=== PATIENT | female | born 1995 | race Caucasian/White ===

== ENCOUNTER 2020-04-30 21:19 | Emergency (ER) | payer BC ==
[~2020-04-30] VITALS: Ht 167.6 cm; Wt 59.0 kg
[2020-04-30] MEDS ORDERED: ACETAMINOPHEN 500MG TABLET PO NR (22:30)
[2020-04-30] MEDS ORDERED: IBUPROFEN 800MG TABLET PO NR (22:30)
[2020-05-01] MEDS ORDERED: ACETAMINOPHEN WITH CODEINE 300/30MG TABLET PO NR
[2020-05-01 00:01] LABS: CLARITY URINE CLEAR (CLEAR); COLOR URINE YELLOW (YELLOW); KETONES URINE NEGATIVE (NEGATIVE); LEUKOCYTE ESTERASE URINE NEGATIVE (NEGATIVE); NITRITE URINE NEGATIVE (NEGATIVE); OCCULT BLOOD URINE NEGATIVE (NEGATIVE); PH URINE 6.5 (4.5-8.0); PROTEIN URINE NEGATIVE (NEGATIVE); SPECIFIC GRAVITY URINE 1.008 (1.005-1.030); UROBILINOGEN URINE 0.2 E.U./dL (0.2-1.0)
[2020-05-01] MEDS ORDERED: T3 PO (00:28)
[2020-05-01 00:45] VITALS: BP 139/99
== END 2020-05-01 00:47 | disposition home or self-care (01) ==
LOC: ER 21:19
DX: M54.5 Low back pain (principal); Z59.0 Homelessness; Z79.899 Other long term (current) drug therapy
CPT/HCPCS: 81003; 99284